=== PATIENT | female | born 1995 | race Native Hawaiian/Other Pacific Islander ===

== ENCOUNTER 2018-08-01 02:40 | Inpatient (IN) | payer OTHER ==
--- NOTE | 2018-08-01 04:01 | ED PDOC ---
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 Denies vaginal bleeding or discharge. Patient reports recently having an US for her which showed an IUP. PMD: Juancarlos Christiansen Past Medical History Reviewed: Historical Data, Nursing Documentation, Vital Signs Vital Signs: Last Vital Signs Temp 98.3 F 08/01/18 02:46 Pulse 95 H 08/01/18 02:46 Resp 18 08/01/18 02:46 BP 114/47 L 08/01/18 02:46 Pulse Ox 100 08/01/18 04:05 - Medical History PMH: No Chronic Diseases - Surgical History Surgical History: No Surg Hx - Family History Family History: States: Unknown Family Hx - Social History Current smoker - smoking cessation education provided: No Alcohol: None Drugs: Denies - Immunization History Hx Tetanus Toxoid Vaccination: No Hx Influenza Vaccination: No Hx Pneumococcal Vaccination: No - Home Medications Home Medications: Ambulatory Orders Medication Instructions Recorded Dicyclomine [Bentyl] 20 mg PO QID PRN #20 tab 02/02/18 - Allergies Allergies/Adverse Reactions: Allergies Allergy/AdvReac Type Severity Reaction Status Date / Time No Known Allergies Allergy Verified 03/16/17 21:47 Review of Systems ROS Statement: Except As Marked, All Systems Reviewed And Found Negative Gastrointestinal: Positive for: Nausea, Vomiting (x10 episodes, clear non-bloody ), Abdominal Pain (epigastric, burning feeling) Genitourinary Female: Negative for: Vaginal Discharge, Vaginal Bleeding Physical Exam - Reviewed Nursing Documentation Reviewed: Yes Vital Signs Reviewed: Yes - Physical Exam Appears: Positive for: Well, Non-toxic, No Acute Distress Head Exam: Positive for: ATRAUMATIC, NORMAL INSPECTION, NORMOCEPHALIC Skin: Positive for: Normal Color, Warm, Dry Eye Exam: Positive for: Normal appearance, EOMI, PERRL ENT: Positive for: Normal ENT Inspection Neck: Positive for: Normal, Painless ROM, Supple Cardiovascular/Chest: Positive for: Regular Rate, Rhythm Respiratory: Positive for: Normal Breath Sounds. Negative for: Accessory Muscle Use, Respiratory Distress Gastrointestinal/Abdominal: Positive for: Tenderness (to palpation of epigastric area; nontender lower abdomen) Pelvic Exam: Positive for: External Exam Normal, Speculum Exam Normal, Tender Adnexa (R sided, no fullness), Other (Leonora Goel, RN is parts and service manager) Back: Positive for: Normal Inspection Extremity: Positive for: Normal ROM. Negative for: Tenderness, Swelling Neurologic/Psych: Positive for: Alert, Oriented (x3). Negative for: Motor/ Sensory Deficits - Laboratory Results Result Diagrams: 08/01/18 04:31 08/01/18 04:31 - ECG O2 Sat by Pulse Oximetry: 100 (RA) Pulse Ox Interpretation: Normal Medical Decision Making Medical Decision Making: A/P: pt presenting with nausea and vomiting --ddx: hyperemesis gravidarum vs gastritis vs gastroenteritis --bedside sonogram positive for heart rate and motion 0326 --BMP --U-preg --U-dip --CBC with differential --Dextrose 5% IV --Pepcid 20mg IVP --Tylenol 650mg PO --Zofran 4mg IVP 0600 --Patient still in same amount of pain --Pain is now migrating towards RLQ, concerning for possible appendicitis --Pelvic exam does demonstrate tender adnexa: unclear at this time if pain is of ovarian pathology or not --Case discussed with Dr. Louis who recommends urgent surgical consult --Case discussed with surgical elastic knitter hand frame Dr. Payan who will evaluate patient 0700 --Will endorse case to Dr. Mishra pending surgical consult, OB consult, MRI, U/S , and Re-eval Scribe Attestation: Documented by Coco Garzon, acting as a scribe for Luisito Mckeon MD. Provider Scribe Attestation: All medical record entries made by the Scribe were at my direction and personally dictated by me. I have reviewed the chart and agree that the record accurately reflects my personal performance of the history, physical exam, medical decision making, and the department course for this patient. I have also personally directed, reviewed, and agree with the discharge instructions and disposition. Disposition - Clinical Impression Clinical Impression: Abdominal pain - Patient ED Disposition Is Patient to be Admitted: Transfer of Care - Disposition Disposition: Transfer of Care Disposition Time: 07:00 Condition: FAIR Forms: [employer] (Moldovan) Patient Signed Over To: Lucho Mishra Handoff Comments: pending sono, MRI, OB, and surgical consult
[2018-08-01] MEDS: Dextrose 5%/0.45% NS 1,000 ML IV SCH ×2 (04:09→09:21)
[2018-08-01 04:38] LABS: BASO % 0.2 % (0.0-2.0); HEMOGLOBIN 10.6 g/dL (12.0-16.0); LYMPH # 1.2 K/uL (1.0-4.3); LYMPH % 5.6 % (20.0-40.0); MEAN CELL VOLUME 89.5 fl (81.0-99.0); MEAN CORPUSCULAR HEMOGLOBIN 30.8 pg (27.0-31.0); MEAN CORPUSCULAR HGB CONC 34.4 g/dL (33.0-37.0); MONO % 4.4 % (0.0-10.0); NEUT # 19.6 K/uL (1.8-7.0); NEUT % 89.8 % (50.0-75.0); NRBC % 0.1 % (0.0-0.0); PLATELET COUNT 291 K/uL (130-400); RBC 3.46 Mil/uL (3.80-5.20); RED CELL DISTRIBUTION WIDTH 12.9 % (11.5-14.5); WHITE BLOOD COUNT 21.8 K/uL (4.8-10.8)
[2018-08-01 04:42] LABS: BLOOD UREA NITROGEN 5 mg/dl (7-17); CALCIUM 9.7 mg/dL (8.4-10.2); GFR NON-AFRICAN AMERICAN > 60
[2018-08-01] MEDS ORDERED: Sodium Chloride 0.9% 1,000 ML IV SCH (05:45)
[2018-08-01 05:53] LABS: ANISOCYTOSIS SLIGHT; BANDS 1 % (0-2); LYMPHOCYTE 7 % (20-50); MONOCYTE 3 % (0-10); NEUTROPHIL 89 % (42-75); PLATELET ESTIMATE NORMAL (NORMAL); POIKILOCYTOSIS SLIGHT; TOTAL CELLS COUNTED 100
[2018-08-01 06:39] LABS: INR 1.1; PROTHROMBIN TIME 12.2 Seconds (9.8-13.1)
[2018-08-01 06:41] LABS: PARTIAL THROMBOPLASTIN TIME 23.3 Seconds (25.6-37.1)
[2018-08-01 06:55] LABS: SQUAMOUS EPITHIAL 2 /hpf (0-5); URINE BILIRUBIN NEGATIVE (NEGATIVE); URINE BLOOD SMALL (NEGATIVE); URINE CLARITY CLEAR (Clear); URINE COLOR STRAW (YELLOW); URINE GLUCOSE (UA) >=500 mg/dL (Normal); URINE LEUKOCYTE ESTERASE NEG Leu/uL (Negative); URINE PROTEIN NEGATIVE (NEGATIVE); URINE UROBILINOGEN 0.2-1.0 mg/dL (0.2-1.0)
--- NOTE | 2018-08-01 07:35 | ED PDOC ---
- Laboratory Results Result Diagrams: 08/01/18 04:31 08/01/18 04:31 - ECG O2 Sat by Pulse Oximetry: 100 (RA) Pulse Ox Interpretation: Normal Medical Decision Making Medical Decision Making: Time: 0700 -- Patient endorsed to me by Dr. Mckeon, pending sono, MRI, OB and surgical consult. Scribe Attestation: Documented by Nathan Chavez acting as a scribe for Lucho Mishra MD. MRI discussed with radiologist, feels that findings suggestive of appendicitis. Discussed with surgical supply assistant as well as Dr. Ruiz. Will admit for appendicitis and start on IV Zosyn. Provider Scribe Attestation: All medical record entries made by the Scribe were at my direction and personally dictated by me. I have reviewed the chart and agree that the record accurately reflects my personal performance of the history, physical exam, medical decision making, and the department course for this patient. I have also personally directed, reviewed, and agree with the discharge instructions and disposition. Disposition - Clinical Impression Clinical Impression: Abdominal pain, Appendicitis - POA Present On Arrival: None - Disposition Disposition: Admitted as In-Patient Disposition Time: 09:14 Condition: FAIR Forms: [employer] (Nepali)
--- NOTE | 2018-08-01 08:35 | CP.PCM.CON ---
<Romel Payan - Last Filed: 08/01/18 08:32> History of Present Illness - History of Present Illness History of Present Illness: General Surgery Consult Re: possible appendicitis HPI: 22F, 9 weeks , presented to the ED for evaluation of nausea and 10x clear, non-bloody emesis, and epigastric pain beginning several hours prior to arrival. After initial treatment, pain began to migrate to the RLQ and did not improve. Denies fever, chills, headache, further emesis, SOB, chest pain, dysuria, bloody BMs, vaginal discharge. PMH: Denies PSH: Denies FH: noncontributory SH: No tobacco, EtOH, or drug use All: NKDA Meds: vitamin, folate Review of Systems - Review of Systems All systems: reviewed and no additional remarkable complaints except (as per HPI ) Past Patient History - Past Social History Alcohol: None Drugs: Denies - PSYCHIATRIC Hx Substance Use: No - SURGICAL HISTORY Hx Surgeries: No Meds Allergies/Adverse Reactions: Allergies Allergy/AdvReac Type Severity Reaction Status Date / Time No Known Allergies Allergy Verified 03/16/17 21:47 - Medications Medications: Current Medications Dextrose/Sodium Chloride (Dextrose 5%/0.45% Ns 1000 Ml) 1,000 mls @ 500 mls/hr IV .Q2H AIRAM Stop: 08/02/18 03:27 Last Admin: 08/01/18 04:09 Dose: 500 mls/hr Sodium Chloride (Sodium Chloride 0.9%) 1,000 mls @ 1,000 mls/hr IV .Q1H AIRAM Stop: 08/02/18 05:33 Last Admin: 08/01/18 06:29 Dose: 1,000 mls/hr Physical Exam - Constitutional Appears: Non-toxic, No Acute Distress - Head Exam Head Exam: ATRAUMATIC, NORMOCEPHALIC - Eye Exam Eye Exam: EOMI. absent: Scleral icterus - ENT Exam ENT Exam: Mucous Membranes Moist Additional comments: trachea midline - Respiratory Exam Respiratory Exam: NORMAL BREATHING PATTERN. absent: Respiratory Distress - Cardiovascular Exam Cardiovascular Exam: RRR, +S1, +S2 - GI/Abdominal Exam GI & Abdominal Exam: Soft, Tenderness (in RLQ at mcburneys point). absent: Distended, Firm, Guarding, Hernia, Rebound, Rigid - Rectal Exam Rectal Exam: Deferred - Extremities Exam Extremities exam: Positive for: pedal pulses present. Negative for: calf tenderness, pedal edema - Back Exam Back exam: absent: CVA tenderness (L), CVA tenderness (R) - Neurological Exam Neurological exam: Alert, Oriented x3 - Skin Skin Exam: Dry, Warm Results - Vital Signs Recent Vital Signs: Last Vital Signs Temp 98.3 F 08/01/18 02:46 Pulse 95 H 08/01/18 02:46 Resp 18 08/01/18 02:46 BP 114/47 L 08/01/18 02:46 Pulse Ox 100 08/01/18 07:35 - Labs Result Diagrams: 08/01/18 04:31 08/01/18 04:31 Labs: Laboratory Results - last 24 hr 08/01/18 08/01/18 08/01/18 04:31 04:31 06:30 WBC 21.8 H RBC 3.46 L Hgb 10.6 L Hct 31.0 L MCV 89.5 MCH 30.8 MCHC 34.4 RDW 12.9 Plt Count 291 MPV 8.0 Neut % (Auto) 89.8 H Lymph % (Auto) 5.6 L [place] % (Auto) 4.4 Eos % (Auto) 0.0 Baso % (Auto) 0.2 Neut # (Auto) 19.6 H Lymph # (Auto) 1.2 [place] # (Auto) 1.0 H Eos # (Auto) 0.0 Baso # (Auto) 0.0 Neutrophils % (Manual) 89 H Band Neutrophils % 1 Lymphocytes % (Manual) 7 L Monocytes % (Manual) 3 Platelet Estimate Normal Poikilocytosis (manual Slight Anisocytosis (manual) Slight PT INR APTT Sodium 138 Potassium 3.8 Chloride 103 Carbon Dioxide 20 L Anion Gap 19 BUN 5 L Creatinine 0.6 L Est GFR ( Amer) > 60 Est GFR (Non-Af Amer) > 60 Random Glucose 92 Calcium 9.7 Beta HCG, Quant 594432.00 Urine Color Urine Clarity Urine pH Ur Specific [place] Urine Protein Urine Glucose (UA) Urine Ketones Urine Blood Urine Nitrate Urine Bilirubin Urine Urobilinogen Ur Leukocyte Esterase Urine RBC (Auto) Urine Microscopic WBC Ur Squamous Epith Cells Blood Type Antibody Screen BBK History Checked 08/01/18 08/01/18 08/01/18 06:30 06:30 06:30 WBC RBC Hgb Hct MCV MCH MCHC RDW Plt Count MPV Neut % (Auto) Lymph % (Auto) [place] % (Auto) Eos % (Auto) Baso % (Auto) Neut # (Auto) Lymph # (Auto) [place] # (Auto) Eos # (Auto) Baso # (Auto) Neutrophils % (Manual) Band Neutrophils % Lymphocytes % (Manual) Monocytes % (Manual) Platelet Estimate Poikilocytosis (manual Anisocytosis (manual) PT 12.2 INR 1.1 APTT 23.3 L Sodium Potassium Chloride Carbon Dioxide Anion Gap BUN Creatinine Est GFR ( Amer) Est GFR (Non-Af Amer) Random Glucose Calcium Beta HCG, Quant Urine Color Straw Urine Clarity Clear Urine pH 7.0 Ur Specific [place] 1.008 Urine Protein Negative Urine Glucose (UA) >=500 Urine Ketones Trace Urine Blood Small Urine Nitrate Negative Urine Bilirubin Negative Urine Urobilinogen 0.2-1.0 Ur Leukocyte Esterase Neg Urine RBC (Auto) 1 Urine Microscopic WBC 1 Ur Squamous Epith Cells 2 Blood Type O POSITIVE Antibody Screen Negative BBK History Checked No verified bt - Imaging and Cardiology MRI - abdomen Status: Image reviewed by me, Pending (report) Assessment & Plan - Assessment and Plan (Free Text) Assessment: 22F with acute appendicitis Plan: F/U MRI read for confimation NPO IVF pain meds PRN Zofran Abx Possible OR today D/W Dr. Mert Payan PGY4 <Damon Painting - Last Filed: 08/01/18 14:12> History of Present Illness - History of Present Illness History of Present Illness: Patient was seen and examined at the bedside. Agree with resident's note above. MRI results noted. Meds - Medications Medications: Current Medications Hydromorphone HCl (Dilaudid) 0.5 mg IVP Q5M PRN PRN Reason: Pain, severe (8-10) Stop: 08/01/18 14:56 Sodium Chloride (Sodium Chloride 0.9%) 1,000 mls @ 1,000 mls/hr IV .Q1H AIRAM Stop: 08/02/18 05:33 Last Admin: 08/01/18 06:29 Dose: 1,000 mls/hr Piperacillin Sod/Tazobactam (Sod 3.375 gm/ Sodium Chloride) 100 mls @ 100 mls/ hr IVPB Q12 AIRAM PRN Reason: Protocol Stop: 08/03/18 21:01 Ondansetron HCl (Zofran Inj) 4 mg IVP Q4 PRN PRN Reason: Nausea/Vomiting Oxycodone/Acetaminophen (Percocet 5/325 Mg Tab) 1 tab PO Q4 PRN PRN Reason: Pain, moderate (4-7) Stop: 08/04/18 13:09 Physical Exam - GI/Abdominal Exam Additional comments: soft, RLQ tenderness, ND, BS+, no rebound, no guarding, gravid uterus Results - Vital Signs Recent Vital Signs: Last Vital Signs Temp 98.2 F 08/01/18 13:50 Pulse 79 08/01/18 13:50 Resp 24 08/01/18 13:50 BP 97/58 L 08/01/18 13:50 Pulse Ox 100 08/01/18 13:50 - Labs Result Diagrams: 08/01/18 04:31 08/01/18 04:31 Labs: Laboratory Results - last 24 hr 08/01/18 08/01/18 08/01/18 04:31 04:31 06:30 WBC 21.8 H RBC 3.46 L Hgb 10.6 L Hct 31.0 L MCV 89.5 MCH 30.8 MCHC 34.4 RDW 12.9 Plt Count 291 MPV 8.0 Neut % (Auto) 89.8 H Lymph % (Auto) 5.6 L [place] % (Auto) 4.4 Eos % (Auto) 0.0 Baso % (Auto) 0.2 Neut # (Auto) 19.6 H Lymph # (Auto) 1.2 [place] # (Auto) 1.0 H Eos # (Auto) 0.0 Baso # (Auto) 0.0 Neutrophils % (Manual) 89 H Band Neutrophils % 1 Lymphocytes % (Manual) 7 L Monocytes % (Manual) 3 Platelet Estimate Normal Poikilocytosis (manual Slight Anisocytosis (manual) Slight PT INR APTT Sodium 138 Potassium 3.8 Chloride 103 Carbon Dioxide 20 L Anion Gap 19 BUN 5 L Creatinine 0.6 L Est GFR ( Amer) > 60 Est GFR (Non-Af Amer) > 60 POC Glucose (mg/dL) Random Glucose 92 Calcium 9.7 Beta HCG, Quant 491110.00 Urine Color Urine Clarity Urine pH Ur Specific [place] Urine Protein Urine Glucose (UA) Urine Ketones Urine Blood Urine Nitrate Urine Bilirubin Urine Urobilinogen Ur Leukocyte Esterase Urine RBC (Auto) Urine Microscopic WBC Ur Squamous Epith Cells Blood Type Blood Type Confirm Antibody Screen BBK History Checked 08/01/18 08/01/18 08/01/18 06:30 06:30 06:30 WBC RBC Hgb Hct MCV MCH MCHC RDW Plt Count MPV Neut % (Auto) Lymph % (Auto) [place] % (Auto) Eos % (Auto) Baso % (Auto) Neut # (Auto) Lymph # (Auto) [place] # (Auto) Eos # (Auto) Baso # (Auto) Neutrophils % (Manual) Band Neutrophils % Lymphocytes % (Manual) Monocytes % (Manual) Platelet Estimate Poikilocytosis (manual Anisocytosis (manual) PT 12.2 INR 1.1 APTT 23.3 L Sodium Potassium Chloride Carbon Dioxide Anion Gap BUN Creatinine Est GFR ( Amer) Est GFR (Non-Af Amer) POC Glucose (mg/dL) Random Glucose Calcium Beta HCG, Quant Urine Color Straw Urine Clarity Clear Urine pH 7.0 Ur Specific [place] 1.008 Urine Protein Negative Urine Glucose (UA) >=500 Urine Ketones Trace Urine Blood Small Urine Nitrate Negative Urine Bilirubin Negative Urine Urobilinogen 0.2-1.0 Ur Leukocyte Esterase Neg Urine RBC (Auto) 1 Urine Microscopic WBC 1 Ur Squamous Epith Cells 2 Blood Type O POSITIVE Blood Type Confirm Antibody Screen Negative BBK History Checked No verified bt 08/01/18 08/01/18 09:15 09:35 WBC RBC Hgb Hct MCV MCH MCHC RDW Plt Count MPV Neut % (Auto) Lymph % (Auto) [place] % (Auto) Eos % (Auto) Baso % (Auto) Neut # (Auto) Lymph # (Auto) [place] # (Auto) Eos # (Auto) Baso # (Auto) Neutrophils % (Manual) Band Neutrophils % Lymphocytes % (Manual) Monocytes % (Manual) Platelet Estimate Poikilocytosis (manual Anisocytosis (manual) PT INR APTT Sodium Potassium Chloride Carbon Dioxide Anion Gap BUN Creatinine Est GFR ( Amer) Est GFR (Non-Af Amer) POC Glucose (mg/dL) 112 H Random Glucose Calcium Beta HCG, Quant Urine Color Urine Clarity Urine pH Ur Specific [place] Urine Protein Urine Glucose (UA) Urine Ketones Urine Blood Urine Nitrate Urine Bilirubin Urine Urobilinogen Ur Leukocyte Esterase Urine RBC (Auto) Urine Microscopic WBC Ur Squamous Epith Cells Blood Type Blood Type Confirm O POSITIVE Antibody Screen BBK History Checked Assessment & Plan - Assessment and Plan (Free Text) Plan: - Keep NPO - IV fluids - Antibiotics - Pain control - To OR for Laparoscopic Appendectomy
[2018-08-01] MEDS ORDERED: Piperacillin/Tazobact 3.375 GM in Sodium Chloride 0.9% 100 ML IVPB STA (09:11)
--- NOTE | 2018-08-01 09:11 | MRI ---
Date of service: 08/01/2018 PROCEDURE: MRI examination of the abdomen without contrast HISTORY: 9wks , RLQ pain COMPARISON: None available. TECHNIQUE: Multiplanar, multi sequence MR images of the pelvis were obtained. No intravenous gadolinium contrast was administered. FINDINGS: UTERUS: There is evidence of a intrauterine gestational sac and probable early pole. pole 24-25 but should be correlated with ultrasound. Additionally viability cannot be documented on this present MRI exam. There appears to be the suggestion of a possible focal fibroid or contraction within the uterus. Visualized cervix is unremarkable. Visualized bladder is unremarkable. OVARIES/ ADNEXA: Right ovary: Unremarkable. Left ovary: Unremarkable. Fallopian tubes: Not visualized. No evidence of hydrosalpinx. BOWEL: No bowel obstruction is appreciated. Fluid filled right colon and cecum are noted. Appendix is noted in the right mid abdomen. There appears to be at least top-normal size of the appendix measuring 10 millimeters. Appendix is fluid filled, and there appears to be the suggestion of some mild adjacent induration enter high-signal fluid. There is also some mild fluid noted tracking into the right pericolic gutter region. Remainder of the small bowel shows no evidence of dilatation or obstruction. Imaging findings are suspicious for appendicitis in the correct clinical setting but should be correlated with laboratory values, symptoms, and physical exam. In addition the appendix is noted a few centimeters below the level of the right kidney can not as inferior within the right pelvis . LYMPH NODES: No lymphadenopathy. BLADDER: Unremarkable. FREE FLUID: Mild high-signal free fluid is seen in the right pericolic gutter and right side of the abdomen. PELVIC BONES: Grossly unremarkable. OTHER FINDINGS: Limited visualization of the internal organs are unremarkable. No hydronephrosis is seen. No perinephric inflammatory changes are noted. No gallstones or gallbladder wall thickening are noted. No appreciable free air is seen. IMPRESSION: Mildly distended appendix with fluid. Appendix measures up to 10 millimeters and there also appears to be some possible mild periappendiceal inflammatory change. Mild fluid is noted in the right pericolic gutter. Findings are suspicious for appendicitis but once again should be correlated with clinical history, symptoms and physical exam. Single intrauterine gestation is noted. Viability should be documented with ultrasound. Results were discussed with the emergency room physician at the time the examination was reviewed.
[2018-08-01] MEDS ORDERED: Piperacillin/Tazobact 3.375 gm Inj IVPB ONE (09:22)
--- NOTE | 2018-08-01 09:40 | US ---
Date of service: 08/01/2018 PROCEDURE: OB Pelvic Ultrasound HISTORY: 9 wks preg, Abd pain 05/22/2018 last menstrual. COMPARISON: MRI examination of the abdomen same day FINDINGS: UTERUS: Gestational sac: Single intrauterine gestation. Heart rate: 164 bpm. age (Ultrasound estimated): 9 weeks and 2 days Brittany-gestational hemorrhage: None. Date of delivery (Ultrasound estimated) : 03/04/2019 Uterus measures 11 x 8 x 6 cm. Normal in size and appearance. CERVIX: Measures within normal limits cm. Long and closed. No cervical abnormality seen. RIGHT OVARY: Measures 2.6 x 2.6 x 1.8 cm. No mass lesion. Normal flow. LEFT OVARY: Measures 2.9 x 2.4 x 1.3 cm. No solid mass. Normal flow. FREE FLUID: None. OTHER FINDINGS: Technologist reveals image of possible tubular structure in the right lower quadrant which is labeled appendix. This measures 5 millimeters on the ultrasound. However on the MRI examination the appendix is located higher than the lower pelvis, and this may reflect other bowel structure. IMPRESSION: Single live intrauterine gestation with an estimated gestational age of 9 weeks and 2 days. No subchorionic hemorrhage or adnexal mass. Technologist performing the exam at the institution measures a possible tubular structure in the right lower quadrant labeled appendix, however this is probably lower than seen on the MRI exam of the same day. Please see MRI report.
[2018-08-01] MEDS ORDERED: Sodium Chloride 0.9% 1,000 ML IV ONE (11:00)
[2018-08-01] MEDS ORDERED: Propofol 10 mg/ml Inj (20 ML) ONE (11:16)
[2018-08-01] MEDS ORDERED: Succinylcholine 200 mg/10 ml Inj IV ONE (11:17)
[2018-08-01] MEDS ORDERED: Rocuronium 10 mg/ml (5 ml) ONE (11:17)
[2018-08-01] MEDS ORDERED: Neostigmine 1:1000 (1 mg/ml) Inj ONE ×2 (11:18→11:19)
[2018-08-01] MEDS ORDERED: Lidocaine 4% (Laryng-O-Jet) Kit MM ONE (11:18)
[2018-08-01] MEDS ORDERED: ePHEDrine 50 mg/ml Inj ONE (11:40)
[2018-08-01] MEDS ORDERED: Lidocaine 2% PF (10 ml) Amp ONE (11:46)
[2018-08-01] MEDS ORDERED: Bupivacaine HCl 0.5% PF (30 ml) Inj ONE (11:47)
[2018-08-01] MEDS ORDERED: Bupivacaine 0.5% Inj(30mL) IJ ONE (12:25)
--- NOTE | 2018-08-01 13:07 | PCM.SURG1 ---
Surgeon's Initial Post Op Note - Surgeon's Notes Surgeon: Dr. Painting Automobile Lights Assembler: Dr. Aguilera PGY-3 Type of Anesthesia: General Endo Anesthesia Administered By: Dr. Jain Pre-Operative Diagnosis: Acute Appendicitis Operative Findings: See operative report Post-Operative Diagnosis: Same Operation Performed: Laparoscopic Appendectomy Specimen/Specimens Removed: Appendix Estimated Blood Loss: EBL {In ML}: 5 Blood Products Given: N/A Drains Used: No Drains Date of Surgery/Procedure: 08/01/18 Time of Surgery/Procedure: 13:07
[2018-08-01] MEDS ORDERED: Oxycodone/Acetaminophen 5/325 mg Tab PO PRN (13:08)
[2018-08-01] MEDS: Piperacillin/Tazobact 3.375 GM in Sodium Chloride 0.9% 100 ML IVPB SCH (21:45)
[2018-08-02 06:22] LABS: BASO % 0.3 % (0.0-2.0); EOS % 0.2 % (0.0-4.0); HEMOGLOBIN 7.9 g/dL (12.0-16.0); LYMPH # 2.7 K/uL (1.0-4.3); LYMPH % 19.2 % (20.0-40.0); MEAN CELL VOLUME 90.7 fl (81.0-99.0); MEAN CORPUSCULAR HEMOGLOBIN 30.4 pg (27.0-31.0); MEAN CORPUSCULAR HGB CONC 33.5 g/dL (33.0-37.0); MONO # 0.7 K/uL (0.0-0.8); MONO % 4.8 % (0.0-10.0); NEUT # 10.7 K/uL (1.8-7.0); NEUT % 75.5 % (50.0-75.0); RBC 2.61 Mil/uL (3.80-5.20); WHITE BLOOD COUNT 14.2 K/uL (4.8-10.8)
--- NOTE | 2018-08-02 07:39 | CP.PCM.PN ---
<Maritza Aguilera - Last Filed: 08/02/18 07:37> Subjective - Date & Time of Evaluation Date of Evaluation: 08/02/18 Time of Evaluation: 07:37 - Subjective Subjective: Surgery: Dr. Painting Pt seen and examined. No acute overnight events. Pt states she is feeling better this AM. She admits to post-op pain around the incisions but states it's well controlled with the pain meds. Admits to tolerating a regular diet. Denies N/V, fevers/chills. Objective - Vital Signs/Intake and Output Vital Signs (last 24 hours): Temp Pulse Resp BP Pulse Ox 97.8 F 81 19 91/64 L 98 08/02/18 05:00 08/02/18 05:00 08/02/18 05:00 08/02/18 05:00 08/02/18 05:00 - Medications Medications: Current Medications Piperacillin Sod/Tazobactam (Sod 3.375 gm/ Sodium Chloride) 100 mls @ 100 mls/ hr IVPB Q12 AIRAM PRN Reason: Protocol Stop: 08/03/18 21:01 Last Admin: 08/01/18 21:45 Dose: 100 mls/hr Ondansetron HCl (Zofran Inj) 4 mg IVP Q4 PRN PRN Reason: Nausea/Vomiting Oxycodone/Acetaminophen (Percocet 5/325 Mg Tab) 1 tab PO Q4 PRN PRN Reason: Pain, moderate (4-7) Stop: 08/04/18 13:09 - Labs Labs: 08/02/18 05:40 08/01/18 04:31 PT 12.2 Seconds (9.8-13.1) 08/01/18 06:30 INR 1.1 08/01/18 06:30 APTT 23.3 Seconds (25.6-37.1) L 08/01/18 06:30 - Constitutional Appears: Well, No Acute Distress - Head Exam Head Exam: ATRAUMATIC, NORMOCEPHALIC - Eye Exam Eye Exam: Normal appearance - ENT Exam ENT Exam: Mucous Membranes Moist - Respiratory Exam Respiratory Exam: NORMAL BREATHING PATTERN - Cardiovascular Exam Cardiovascular Exam: RRR - GI/Abdominal Exam GI & Abdominal Exam: Soft, Tenderness (around incision sites ). absent: Distended, Rebound - Neurological Exam Neurological Exam: Alert, Awake, Oriented x3 - Skin Skin Exam: Dry, Warm Assessment and Plan - Assessment and Plan (Free Text) Assessment: 22F, 9 weeks , with acute appendicitis s/p lap appendectomy; POD#1 Plan: - WBC trending down - cont ABX - drop in H/H likely dilutional, as pt is hemodynamically stable - will cont to monitor - further recs per Dr. Mert Aguilera <Damon Painting - Last Filed: 08/02/18 16:52> Subjective - Date & Time of Evaluation Time of Evaluation: 16:10 - Subjective Subjective: Patient was seen and examined at the bedside. Agree with resident's note above. Objective - Vital Signs/Intake and Output Vital Signs (last 24 hours): Temp Pulse Resp BP Pulse Ox 98.8 F 75 20 93/56 L 98 08/02/18 16:24 08/02/18 16:24 08/02/18 16:24 08/02/18 16:24 08/02/18 16:24 - Medications Medications: Current Medications Piperacillin Sod/Tazobactam (Sod 3.375 gm/ Sodium Chloride) 100 mls @ 100 mls/ hr IVPB Q12 AIRAM PRN Reason: Protocol Stop: 08/03/18 21:01 Last Admin: 08/02/18 11:00 Dose: 100 mls/hr Ondansetron HCl (Zofran Inj) 4 mg IVP Q4 PRN PRN Reason: Nausea/Vomiting Oxycodone/Acetaminophen (Percocet 5/325 Mg Tab) 1 tab PO Q4 PRN PRN Reason: Pain, moderate (4-7) Stop: 08/04/18 13:09 - Labs Labs: 08/02/18 05:40 08/01/18 04:31 PT 12.2 Seconds (9.8-13.1) 08/01/18 06:30 INR 1.1 08/01/18 06:30 APTT 23.3 Seconds (25.6-37.1) L 08/01/18 06:30 Assessment and Plan - Assessment and Plan (Free Text) Plan: - repeat CBC - If Hb stable patient is clear for discharge home from the general surgery stand point - Patient will follow up with me in the office in 10 days to 2 weeks for post- op visit
[2018-08-02] MEDS: Piperacillin/Tazobact 3.375 GM in Sodium Chloride 0.9% 100 ML IVPB SCH (11:00)
--- NOTE | 2018-08-02 15:41 | CP.PCM.HP ---
History of Present Illness - History of Present Illness History of Present Illness: CC: Abdominal Pain HPI: A 22 year old , Approx 9 weeks female presents to the ED for evaluation of nausea, 10 episodes of clear, non-bloody vomit, and epigastric pain described as burning beginning a few hours prior to arrival. Denies vaginal bleeding or discharge. Patient reports recently having an US for her which showed an IUP. Present on Admission - Present on Admission Any Indicators Present on Admission: No Review of Systems - Review of Systems All systems: reviewed and no additional remarkable complaints except Review of Systems: as per HPI Past Patient History - Past Medical History & Family History Past Medical History?: No Past Family History: Reviewed and not pertinent - Past Social History Smoking Status: Never Smoked Alcohol: None Drugs: Denies - PSYCHIATRIC Hx Emotional Abuse: No Hx Physical Abuse: No - SURGICAL HISTORY Hx Surgeries: No - ANESTHESIA Hx Anesthesia: No Meds Allergies/Adverse Reactions: Allergies Allergy/AdvReac Type Severity Reaction Status Date / Time No Known Allergies Allergy Verified 03/16/17 21:47 Physical Exam - Constitutional Appears: In Acute Distress - Head Exam Head Exam: ATRAUMATIC, NORMAL INSPECTION, NORMOCEPHALIC - Eye Exam Eye Exam: EOMI, Normal appearance, PERRL Pupil Exam: NORMAL ACCOMODATION, PERRL - ENT Exam ENT Exam: Mucous Membranes Moist, Normal Exam - Neck Exam Neck exam: Positive for: Normal Inspection - Respiratory Exam Respiratory Exam: Clear to Auscultation Bilateral, NORMAL BREATHING PATTERN - Cardiovascular Exam Cardiovascular Exam: REGULAR RHYTHM - GI/Abdominal Exam GI & Abdominal Exam: Guarding, Normal Bowel Sounds, Rebound, Tenderness - Extremities Exam Extremities exam: Positive for: full ROM, normal inspection - Back Exam Back exam: NORMAL INSPECTION - Neurological Exam Neurological exam: Alert, CN II-XII Intact, Normal Gait, Oriented x3, Reflexes Normal - Psychiatric Exam Psychiatric exam: Normal Affect, Normal Mood - Skin Skin Exam: Dry, Intact, Normal Color, Warm Results - Vital Signs Recent Vital Signs: Last Vital Signs Temp 99.1 F 08/02/18 07:55 Pulse 98 H 08/02/18 07:55 Resp 18 08/02/18 07:55 BP 94/48 L 08/02/18 07:55 Pulse Ox 97 08/02/18 07:55 - Labs Result Diagrams: 08/02/18 16:30 08/01/18 04:31 Labs: Laboratory Results - last 24 hr 08/02/18 05:40 WBC 14.2 H RBC 2.61 L Hgb 7.9 L D Hct 23.7 L MCV 90.7 MCH 30.4 MCHC 33.5 RDW 13.0 Plt Count 203 MPV 8.0 Neut % (Auto) 75.5 H Lymph % (Auto) 19.2 L [place] % (Auto) 4.8 Eos % (Auto) 0.2 Baso % (Auto) 0.3 Neut # (Auto) 10.7 H Lymph # (Auto) 2.7 [place] # (Auto) 0.7 Eos # (Auto) 0.0 Baso # (Auto) 0.0 - Imaging and Cardiology US - abdomen Status: Report reviewed by me Additional comment: CARLEENP MRI - abdomen Status: Report reviewed by me Additional comment: CHRISTOPHER. Appendecitis Assessment & Plan (1) Appendicitis Assessment and Plan: Leukocytosis IVF IV Zosyn Pain PRN Zofran PRN Surgery onboard Status: Acute Priority: High
[2018-08-02 16:25] VITALS: BP 93/56; PULSE 75; RESP 20; TEMP 98.8; O2SAT 98
[2018-08-02 17:00] LABS: BASO % 0.3 % (0.0-2.0); EOS % 0.2 % (0.0-4.0); HEMOGLOBIN 8.4 g/dL (12.0-16.0); LYMPH # 2.3 K/uL (1.0-4.3); LYMPH % 17.8 % (20.0-40.0); MEAN CELL VOLUME 90.3 fl (81.0-99.0); MEAN CORPUSCULAR HEMOGLOBIN 30.4 pg (27.0-31.0); MEAN CORPUSCULAR HGB CONC 33.6 g/dL (33.0-37.0); MONO # 0.8 K/uL (0.0-0.8); MONO % 6.3 % (0.0-10.0); NEUT # 9.6 K/uL (1.8-7.0); NEUT % 75.4 % (50.0-75.0); RBC 2.75 Mil/uL (3.80-5.20); RED CELL DISTRIBUTION WIDTH 13.1 % (11.5-14.5); WHITE BLOOD COUNT 12.7 K/uL (4.8-10.8)
--- NOTE | 2018-08-02 22:05 | CP.PCM.DIS ---
Provider - Provider Date of Admission: 08/01/18 09:15 Attending physician: Fracisco Richmond MD Time Spent in preparation of Discharge (in minutes): 35 Diagnosis - Discharge Diagnosis (1) Appendicitis Status: Acute Priority: High (2) Leukocytosis Status: Acute (3) Abdominal pain Status: Acute Hospital Course - Lab Results Lab Results: Most Recent Lab Values WBC 12.7 K/uL (4.8-10.8) H 08/02/18 16:30 RBC 2.75 Mil/uL (3.80-5.20) L 08/02/18 16:30 Hgb 8.4 g/dL (12.0-16.0) L 08/02/18 16:30 Hct 24.9 % (34.0-47.0) L 08/02/18 16:30 MCV 90.3 fl (81.0-99.0) 08/02/18 16:30 MCH 30.4 pg (27.0-31.0) 08/02/18 16:30 MCHC 33.6 g/dL (33.0-37.0) 08/02/18 16:30 RDW 13.1 % (11.5-14.5) 08/02/18 16:30 Plt Count 210 K/uL (130-400) 08/02/18 16:30 MPV 8.0 fl (7.2-11.7) 08/02/18 16:30 Neut % (Auto) 75.4 % (50.0-75.0) H 08/02/18 16:30 Lymph % (Auto) 17.8 % (20.0-40.0) L 08/02/18 16:30 [place] % (Auto) 6.3 % (0.0-10.0) 08/02/18 16:30 Eos % (Auto) 0.2 % (0.0-4.0) 08/02/18 16:30 Baso % (Auto) 0.3 % (0.0-2.0) 08/02/18 16:30 Neut # (Auto) 9.6 K/uL (1.8-7.0) H 08/02/18 16:30 Lymph # (Auto) 2.3 K/uL (1.0-4.3) 08/02/18 16:30 [place] # (Auto) 0.8 K/uL (0.0-0.8) 08/02/18 16:30 Eos # (Auto) 0.0 K/uL (0.0-0.7) 08/02/18 16:30 Baso # (Auto) 0.0 K/uL (0.0-0.2) 08/02/18 16:30 Neutrophils % (Manual) 89 % (42-75) H 08/01/18 04:31 Band Neutrophils % 1 % (0-2) 08/01/18 04:31 Lymphocytes % (Manual) 7 % (20-50) L 08/01/18 04:31 Monocytes % (Manual) 3 % (0-10) 08/01/18 04:31 Platelet Estimate Normal (NORMAL) 08/01/18 04:31 Poikilocytosis (manual Slight 08/01/18 04:31 Anisocytosis (manual) Slight 08/01/18 04:31 PT 12.2 Seconds (9.8-13.1) 08/01/18 06:30 INR 1.1 08/01/18 06:30 APTT 23.3 Seconds (25.6-37.1) L 08/01/18 06:30 Sodium 138 mmol/l (132-148) 08/01/18 04:31 Potassium 3.8 MMOL/L (3.6-5.0) 08/01/18 04:31 Chloride 103 mmol/L (98-107) 08/01/18 04:31 Carbon Dioxide 20 mmol/L (22-30) L 08/01/18 04:31 Anion Gap 19 (10-20) 08/01/18 04:31 BUN 5 mg/dl (7-17) L 08/01/18 04:31 Creatinine 0.6 mg/dl (0.7-1.2) L 08/01/18 04:31 Est GFR ( Amer) > 60 08/01/18 04:31 Est GFR (Non-Af Amer) > 60 08/01/18 04:31 POC Glucose (mg/dL) 112 mg/dL (65-110) H 08/01/18 09:35 Random Glucose 92 mg/dL (65-105) 08/01/18 04:31 Calcium 9.7 mg/dL (8.4-10.2) 08/01/18 04:31 Beta HCG, Quant 076271.00 mIU/mL 08/01/18 06:30 Urine Color Straw (YELLOW) 08/01/18 06:30 Urine Clarity Clear (Clear) 08/01/18 06:30 Urine pH 7.0 (5.0-8.0) 08/01/18 06:30 Ur Specific [place] 1.008 (1.003-1.030) 08/01/18 06:30 Urine Protein Negative mg/dL (NEGATIVE) 08/01/18 06:30 Urine Glucose (UA) >=500 mg/dL (Normal) 08/01/18 06:30 Urine Ketones Trace mg/dL (NEGATIVE) 08/01/18 06:30 Urine Blood Small (NEGATIVE) 08/01/18 06:30 Urine Nitrate Negative (NEGATIVE) 08/01/18 06:30 Urine Bilirubin Negative (NEGATIVE) 08/01/18 06:30 Urine Urobilinogen 0.2-1.0 mg/dL (0.2-1.0) 08/01/18 06:30 Ur Leukocyte Esterase Neg [place]/uL (Negative) 08/01/18 06:30 Urine RBC (Auto) 1 /hpf (0-3) 08/01/18 06:30 Urine Microscopic WBC 1 /hpf (0-5) 08/01/18 06:30 Ur Squamous Epith Cells 2 /hpf (0-5) 08/01/18 06:30 Blood Type O POSITIVE 08/01/18 06:30 Blood Type Confirm O POSITIVE 08/01/18 09:15 Antibody Screen Negative 08/01/18 06:30 BBK History Checked No verified bt 08/01/18 06:30 Discharge Exam - Head Exam Head Exam: ATRAUMATIC, NORMAL INSPECTION, NORMOCEPHALIC Discharge Plan - Follow Up Plan Condition: FAIR Disposition: HOME/ ROUTINE Instructions: Acute Abdominal Pain (DC), Acute Abdominal Pain (GEN) Additional Instructions: Follow up with Dr. Hodges in 10-14 days. No lifting for 3-4 weeks May shower and pat dry incisions dry No tub baths If you develop a fever or severe pain, return to ER. Take antibiotic until finished Take Motrin 800 mg q8h as needed for pain or tylenol 650 mg q6h as needed for pain
--- NOTE | 2018-08-03 08:18 | OP ---
PROCEDURE DATE: 08/01/18 PREOPERATIVE DIAGNOSIS: Acute appendicitis. POSTOPERATIVE DIAGNOSIS: Acute appendicitis. PROCEDURE: Laparoscopic appendectomy. SURGEON: Damon Painting MD. INTERLACER: Maritza Aguilera DO. ANESTHESIA: General endotracheal intubation. ANESTHESIOLOGIST: . IV FLUIDS: Crystalloids. ESTIMATED BLOOD LOSS: 5 mL. INTRAOPERATIVE FINDINGS: Acute appendicitis. SPECIMEN: Appendix. BRIEF HISTORY: Ms. Marcos is a very pleasant 22-year-old female who came to the hospital complaining of 1 day duration of right-sided abdominal pain as well as nausea and vomiting. Of note, the patient is 9 weeks' and upon further investigation and MRI of the abdomen and pelvis, the patient was found to have acute appendicitis and elevated white blood cell count. All the risks and benefits of the procedure were explained to the patient and with the patient having a full understanding of all the risks and benefits involved, informed consent was obtained and the patient was taken to the operating room for above-stated procedure. DESCRIPTION OF PROCEDURE: The patient was brought in to the operating room and placed supine on the operating room table. Bilateral Flowtron boots were applied to the patient's lower extremities. After successful induction of anesthesia and successful endotracheal intubation by the anesthesia team, Melendez catheter was inserted into the patient's urinary bladder and subsequent to that, the patient abdomen was prepped with ChloraPrep stick and draped in a standard surgical fashion. Prior to the beginning of the procedure, time-out was called in the room and everyone in the room were in agreement. Using a Veress needle, the patient's abdomen was entered at the umbilicus and pneumoperitoneum was achieved with good opening pressures. The set pressure for the intraabdominal pressure was at 12 secondary to the patient being . Subsequent to that, a 5-mm 0-degree scope was introduced into the patient's abdomen and the abdomen was inspected. We immediately were able to visualize some inflammatory changes in the right lower quadrant of the patient's abdomen and the uterus appeared to be gravid. Then, attention was turned to the lower mid abdomen. After insufflation of the abdomen, using a 11-blade scalpel knife, a 5-mm incision was made supraumbilically in a longitudinal fashion and subsequent to that, using a 5-mm Optiview Visiport, the patient's abdomen was entered under direct visualization and subsequent to that, a 5-mm 0-degree scope was introduced into the patient's abdomen. We immediately were able to visualize inflammatory changes in the right lower quadrant of the patient's abdomen and the uterus appeared to be gravid. Then, attention was turned to the lower mid abdomen. Using a 11-blade scalpel knife, a 5-mm incision was made in a transverse fashion. Subsequent to that, another 5-mm trocar was introduced into the patient's abdomen. At this point in time, attention was turned to the left lower quadrant of the patient's abdomen. Using a 11-blade scalpel knife, approximately 1-cm incision was made in transverse fashion and subsequent to that, a 12-mm trocar was introduced into the patient's abdomen. At this point in time, using two graspers, appendix was mobilized and subsequent to that, the window was created between the appendix and the mesoappendix using [place] dissector. Once this was accomplished, the appendix was taken right at the base with 45-mm blue load and the Endo JAZMYN stapler. Once the stapler was fired, then mesoappendix was taken with 45-mm carter load and the JAZMYN stapler and once the mesoappendix was taken, there appeared to be some oozing at the staple line, which was controlled with one 10-mm clip yacht captain. At this point in time, EndoCatch bag was introduced into the patient's abdomen. Appendix was placed inside of the bag and the bag was closed. At this point in time, the staple line was inspected for hemostasis. Hemostasis was confirmed. A 12 mm trocar together with EndoCatch bag and appendix were removed from the patient's abdomen and passed off to the [facility] as a specimen. Fascial layer at the 12-mm trocar site was closed with one interrupted 0 Vicryl suture and UR-6 needle. Subsequent to that, the patient's abdomen was fully desufflated. The rest of the trocars were removed from the patient's abdomen and the skin was closed with a 4-0 Monocryl suture in a running subcuticular fashion. At the end of the procedure, incision sites were infiltrated with Marcaine anesthetic. The patient's abdomen was washed and dried and a Dermabond was applied to the site of the incisions. Melendez catheter was removed from the patient's urinary bladder. The patient was successfully extubated by the anesthesia team, transferred to the [facility], and taken to the recovery room in a stable condition. At the end of the procedure, all instrument counts, needles, and sponges were correct. Damon Painting MD
== END 2018-08-02 18:10 | disposition home or self-care (01) | DRG 885 ==
LOC: H.ER 02:40 → H.ERHOLD 09:15 → H.MEDSURG1 14:18
PROVIDERS: ADMIT Internal Medicine; ATTEND Internal Medicine
PROC: 0DTJ4ZZ Resection of Appendix, Percutaneous Endoscopic Approach (ICD-10-PCS; principal; 2018-08-01 11:45)
DX: O99.611 Diseases of the digestive system complicating pregnancy, first trimester (principal); K35.80 Unspecified acute appendicitis; Z3A.09 9 weeks gestation of pregnancy; D72.829 Elevated white blood cell count, unspecified

== ENCOUNTER 2018-08-05 10:54 | Emergency (ER) | payer OTHER ==
[2018-08-05 11:00] VITALS: RESP 18; O2SAT 99
[2018-08-05 11:01] VITALS: BMI 22.6
[2018-08-05 12:15] LABS: BASO # 0.1 K/uL (0.0-0.2); BASO % 0.6 % (0.0-2.0); EOS # 0.1 K/uL (0.0-0.7); EOS % 0.9 % (0.0-4.0); HEMOGLOBIN 9.9 g/dL (12.0-16.0); LYMPH # 2.4 K/uL (1.0-4.3); LYMPH % 27.6 % (20.0-40.0); MEAN CELL VOLUME 88.2 fl (81.0-99.0); MEAN CORPUSCULAR HEMOGLOBIN 31.5 pg (27.0-31.0); MEAN CORPUSCULAR HGB CONC 35.8 g/dL (33.0-37.0); MEAN PLATELET VOLUME 8.1 fl (7.2-11.7); MONO # 0.6 K/uL (0.0-0.8); MONO % 7.1 % (0.0-10.0); NEUT # 5.6 K/uL (1.8-7.0); NEUT % 63.8 % (50.0-75.0); NRBC % 0.1 % (0.0-0.0); RBC 3.15 Mil/uL (3.80-5.20); RED CELL DISTRIBUTION WIDTH 12.8 % (11.5-14.5); WHITE BLOOD COUNT 8.8 K/uL (4.8-10.8)
[2018-08-05 12:22] LABS: SQUAMOUS EPITHIAL 3 /hpf (0-5); URINE BACTERIA MANY (<OCC); URINE BILIRUBIN NEGATIVE (NEGATIVE); URINE BLOOD SMALL (NEGATIVE); URINE CLARITY SLIGHTY-CLOUDY (Clear); URINE COLOR YELLOW (YELLOW); URINE GLUCOSE (UA) NEG (Normal); URINE LEUKOCYTE ESTERASE TRACE Leu/uL (Negative); URINE PROTEIN NEGATIVE (NEGATIVE); URINE UROBILINOGEN 0.2-1.0 mg/dL (0.2-1.0)
[2018-08-05 12:38] LABS: BLOOD UREA NITROGEN 5 mg/dl (7-17); CALCIUM 9.4 mg/dL (8.4-10.2); GFR NON-AFRICAN AMERICAN > 60
--- NOTE | 2018-08-05 14:26 | US ---
Date of service: 08/05/2018 PROCEDURE: OB Pelvic Ultrasound HISTORY: 8wks preg, s/p appendectomy, pelvic discomfort LMP: 05/22/2018 COMPARISON: None available. FINDINGS: UTERUS: Gestational sac: Single intrauterine gestation. Heart rate: 165 bpm. Gestational sac diameter measures 5.54 cm corresponding to 11 weeks and 4 days of gestational age. CRL measures 3.93 cm corresponding to 10 weeks and 6 days of gestational age. age (Ultrasound estimated): 11 weeks and 2 days Brittany-gestational hemorrhage: None. Date of delivery (Ultrasound estimated) : 02/22/2019 Uterus measures 14.3 x 6.3 x 9.0 cm. Normal in size and appearance. CERVIX: Measures 3.5 cm. Long and closed. No cervical abnormality seen. RIGHT OVARY: Measures 2.8 x 2.1 x 2.8 cm. No mass lesion. Normal flow. LEFT OVARY: Measures 2.8 x 2.3 x 2.7 cm. No solid mass. Normal flow. FREE FLUID: None. OTHER FINDINGS: None. IMPRESSION: Single live intrauterine gestation with mean gestational age of 11 weeks and 2 days. The estimated date of delivery by ultrasound is 02/22/2019.
--- NOTE | 2018-08-05 14:52 | ED PDOC ---
HPI: Female Pain Time Seen by Provider: 08/05/18 11:25 Chief Complaint (Nursing): Female Genitourinary Past Medical History Vital Signs: Last Vital Signs Temp 97 F L 08/05/18 10:59 Pulse 76 08/05/18 10:59 Resp 18 08/05/18 10:59 BP 103/68 08/05/18 10:59 Pulse Ox 99 08/05/18 10:59 - Surgical History Surgical History: Appendectomy - Family History Family History: States: Unknown Family Hx - Immunization History Hx Tetanus Toxoid Vaccination: No Hx Influenza Vaccination: No Hx Pneumococcal Vaccination: No - Home Medications Home Medications: Ambulatory Orders Medication Instructions Recorded Dicyclomine [Bentyl] 20 mg PO QID PRN #20 tab 02/02/18 Miconazole 2% Vaginal [Monistat 7 200 ea VG HS 3 Days #1 tube 08/05/18 Vaginal Cream] - Allergies Allergies/Adverse Reactions: Allergies Allergy/AdvReac Type Severity Reaction Status Date / Time No Known Allergies Allergy Verified 03/16/17 21:47 Physical Exam - Physical Exam Pelvic Exam: Positive for: External Exam Normal, Other (trace heterogeneous discharge at vaginal os, pt refused vag speculum exam stating wishes of surgical team avoid anything in vagina) - Laboratory Results Result Diagrams: 08/05/18 11:40 08/05/18 11:40 - ECG O2 Sat by Pulse Oximetry: 99 Medical Decision Making Medical Decision Making: Accession No. : [id number] Patient Name / ID : ROLAND STUBBS / [id number] Exam Date : 08/05/2018 12:24:47 ( Approved ) Study Comment : Sex / Age : F / 22Y Creator : Lorie Eric MD Dictator : Lorie Eric MD Ssis Developer : Cherry Grower : Lorie Eric MD Approver2 : Report Date : 08/05/2018 14:24:27 My Comment : Date of service: 08/05/2018 PROCEDURE: OB Pelvic Ultrasound HISTORY: 8wks preg, s/p appendectomy, pelvic discomfort LMP: 05/22/2018 COMPARISON: None available. FINDINGS: UTERUS: Gestational sac: Single intrauterine gestation. Heart rate: 165 bpm. Gestational sac diameter measures 5.54 cm corresponding to 11 weeks and 4 days of gestational age. CRL measures 3.93 cm corresponding to 10 weeks and 6 days of gestational age. age (Ultrasound estimated): 11 weeks and 2 days Brittany-gestational hemorrhage: None. Date of delivery (Ultrasound estimated) : 02/22/2019 Uterus measures 14.3 x 6.3 x 9.0 cm. Normal in size and appearance. CERVIX: Measures 3.5 cm. Long and closed. No cervical abnormality seen. RIGHT OVARY: Measures 2.8 x 2.1 x 2.8 cm. No mass lesion. Normal flow. LEFT OVARY: Measures 2.8 x 2.3 x 2.7 cm. No solid mass. Normal flow. FREE FLUID: None. OTHER FINDINGS: None. IMPRESSION: Single live intrauterine gestation with mean gestational age of 11 weeks and 2 days. The estimated date of delivery by ultrasound is 02/22/2019. Disposition - Clinical Impression Clinical Impression: Vaginal discharge, Post-operative pain, - Disposition Referrals: [facility] [Outside] Damon Painting MD [Staff Provider] - Condition: STABLE Additional Instructions: See VENEER GLUE SPREADER/OB in next 3-4 days for followup. Return to ER for any worse or new symptoms. Continue antibiotics as prior prescribed. Prescriptions: Miconazole 2% Vaginal [Monistat 7 Vaginal Cream] 200 ea VG HS 3 Days #1 tube Instructions: Vaginal Discharge in Adults Forms: [place] (Faroese)
[2018-08-05 15:47] VITALS: BP 103/58; PULSE 67; TEMP 98.7
== END 2018-08-05 15:50 | disposition home or self-care (01) ==
LOC: H.ER 10:54
DX: N89.8 Other specified noninflammatory disorders of vagina (principal); G89.18 Other acute postprocedural pain; Z33.1 Pregnant state, incidental; Z3A.11 11 weeks gestation of pregnancy

== ENCOUNTER 2018-09-19 14:28 | Emergency (ER) | payer MEDICAID, OTHER ==
[2018-09-19 14:28] VITALS: BMI 22.6
[2018-09-19 14:36] VITALS: RESP 16
--- NOTE | 2018-09-19 16:21 | CP.PCM.CON ---
<Angel Soto - Last Filed: 09/19/18 16:17> History of Present Illness - History of Present Illness History of Present Illness: General Surgery Consult Note- Dr. Painting 22F pmhx significant for uneventful laparoscopic appendectomy on 08/01/18 currently 17 weeks presents to [facility] ED with redness and rash over old incision sites. Patient states redness and itchiness first started 2 weeks ago and slowly and progressively worsened. Denies acute abdominal pain. Patient admits to taking new medications, prenantal vitamins, multivitamins, iron, and zofran for nausea related . Patient denies vomiting, fevers, chills, chest pain, shortness of breath. Patient attempted to use hydrocortisone cream which did not help. During examination, bedside ultrasound was used and no pockets of fluid was detected. ROS: 12 pt ROS conducted, negative otherwise stated above PMH: jadyn PSH: Tammy Powers (07/2018) ALL: NKDA SocialHx: Denies tobacco, etoh, recreational drug use OBGYN: Dr. Patel in [facility] Review of Systems - Review of Systems All systems: reviewed and no additional remarkable complaints except - Constitutional Constitutional: As Per HPI Past Patient History - Past Medical History & Family History Past Medical History?: No - Past Social History Smoking Status: Never Smoked - PSYCHIATRIC Hx Emotional Abuse: No Hx Physical Abuse: No Hx Substance Use: No - SURGICAL HISTORY Hx Surgeries: No - ANESTHESIA Hx Anesthesia: No Meds Allergies/Adverse Reactions: Allergies Allergy/AdvReac Type Severity Reaction Status Date / Time No Known Allergies Allergy Verified 09/19/18 14:31 Physical Exam - Constitutional Appears: Non-toxic, No Acute Distress - Head Exam Head Exam: ATRAUMATIC - Eye Exam Eye Exam: EOMI. absent: Scleral icterus - ENT Exam ENT Exam: Mucous Membranes Moist - Respiratory Exam Respiratory Exam: NORMAL BREATHING PATTERN. absent: Accessory Muscle Use, Respiratory Distress - Cardiovascular Exam Cardiovascular Exam: +S1, +S2. absent: Bradycardia, Tachycardia - GI/Abdominal Exam GI & Abdominal Exam: Soft. absent: Distended, Firm, Guarding, Hernia, Rebound, Rigid, Tenderness Additional comments: non-tender whealed erythematous region around left flank and stephen-umbilical. No areas of fluctuance, no warmth/tenderness incisions healed well and closed. - Back Exam Back exam: absent: CVA tenderness (L), CVA tenderness (R) - Neurological Exam Neurological exam: Alert, Oriented x3 - Psychiatric Exam Psychiatric exam: Normal Affect - Skin Skin Exam: Erythema (Erythema round LLQ old well healed incision. No warmth or tenderness), Warm Results - Vital Signs Recent Vital Signs: Last Vital Signs Temp 97.5 F L 09/19/18 14:31 Pulse 82 09/19/18 14:31 Resp 16 09/19/18 14:31 BP 101/50 L 09/19/18 14:31 Pulse Ox 98 09/19/18 14:31 Assessment & Plan - Assessment and Plan (Free Text) Assessment: 22F s/p Laparoscopic appendectomy on 08/01/18, w/ no immediate complications noted, currently 17 weeks Plan: - Bedside ultrasound shows no collection or drainable pocket. - unlikely wound infection given the length of time post-operatively and lack of tenderness and no areas of fluctuance - likely allergic source in nature - recommend medicine/derm consult or follow up - no acute surgical intervention at this time - patient cleared for discharge home from a surgical standpoint - patient seen, examined and case discussed in detail with Surgical attending PGY2 <Damon Painting - Last Filed: 09/19/18 16:39> History of Present Illness - History of Present Illness History of Present Illness: Patient was seen and examined at the bedside with resident. Agree with resident's note above. Results - Vital Signs Recent Vital Signs: Last Vital Signs Temp 97.5 F L 09/19/18 14:31 Pulse 82 09/19/18 14:31 Resp 16 09/19/18 14:31 BP 101/50 L 09/19/18 14:31 Pulse Ox 98 09/19/18 16:36
--- NOTE | 2018-09-19 16:31 | ED PDOC ---
HPI: Skin/Bite Injury Time Seen by Provider: 09/19/18 14:35 Chief Complaint (Nursing): Abnormal Skin Integrity Chief Complaint (Provider): Itchiness on skin x 2 weeks History Per: Patient History/Exam Limitations: no limitations Onset/Duration Of Symptoms: Days Current Symptoms Are (Timing): Still Present Location Of Injury: Right: Abdomen, Left: Abdomen Quality Of Symptoms: Itching Severity: Moderate Additional Complaint(s): 22 yo female presents for evaluation of itchiness of 3 area on abdomen. PT states it began 2 weeks ago around incision sites. Pt had appendectomy 08/01/18. Pt denies pain. Pt denies N/V/D. Pt denies fever. No similar in the past. Pt states she comes to ER today because the itchiness keeps her up at night. Past Medical History Reviewed: Historical Data, Nursing Documentation, Vital Signs Vital Signs: Last Vital Signs Temp 97.5 F L 09/19/18 14:31 Pulse 82 09/19/18 14:31 Resp 16 09/19/18 14:31 BP 101/50 L 09/19/18 14:31 Pulse Ox 98 09/19/18 14:31 - Medical History PMH: No Chronic Diseases - Surgical History Surgical History: Appendectomy - Family History Family History: States: Unknown Family Hx - Living Arrangements Living Arrangements: With Family - Social History Current smoker - smoking cessation education provided: No - Immunization History Hx Tetanus Toxoid Vaccination: No Hx Influenza Vaccination: No Hx Pneumococcal Vaccination: No - Home Medications Home Medications: Ambulatory Orders Medication Instructions Recorded Dicyclomine [Bentyl] 20 mg PO QID PRN #20 tab 02/02/18 Miconazole 2% Vaginal [Monistat 7 200 ea VG HS 3 Days #1 tube 08/05/18 Vaginal Cream] DiphenhydrAMINE [Benadryl] 50 mg PO Q6H PRN #20 cap 09/19/18 Hydrocortisone 0.5% CREAM 30 applic EXT BID PRN #1 tube 09/19/18 [Cortizone 0.5% CREAM] - Allergies Allergies/Adverse Reactions: Allergies Allergy/AdvReac Type Severity Reaction Status Date / Time No Known Allergies Allergy Verified 09/19/18 14:31 Review of Systems ROS Statement: Except As Marked, All Systems Reviewed And Found Negative Constitutional: Negative for: Fever, Chills Gastrointestinal: Negative for: Nausea, Vomiting, Abdominal Pain, Diarrhea Genitourinary Female: Negative for: Dysuria, Frequency Skin: Positive for: Rash Physical Exam - Reviewed Nursing Documentation Reviewed: Yes Vital Signs Reviewed: Yes - Physical Exam Appears: Positive for: Well, Non-toxic, No Acute Distress Head Exam: Positive for: ATRAUMATIC, NORMAL INSPECTION, NORMOCEPHALIC Skin: Positive for: Warm, Rash ((+) blanching erythematous area around each incision site, areas non-tender, (+) blanching, with scaly appearance consistant with dermatitis ). Negative for: Normal Color Eye Exam: Positive for: Normal appearance ENT: Positive for: Normal ENT Inspection Neck: Positive for: Normal Cardiovascular/Chest: Positive for: Regular Rate, Rhythm. Negative for: Bradycardia, Tachycardia Respiratory: Positive for: Normal Breath Sounds. Negative for: Accessory Muscle Use, Respiratory Distress Gastrointestinal/Abdominal: Positive for: Normal Exam, Soft. Negative for: Tenderness, Distended, Guarding, Rebound Back: Positive for: Normal Inspection Extremity: Positive for: Normal ROM Neurologic/Psych: Positive for: Alert, Oriented - ECG O2 Sat by Pulse Oximetry: 98 Medical Decision Making Medical Decision Making: Pt seen and evaluated by Dr. Painting and surgical aides teacher. There is no surgical infection. Discussed with Dr. Summers. Discussed follow-up with acetylene torch burner. Disposition - Clinical Impression Clinical Impression: Dermatitis - Patient ED Disposition Is Patient to be Admitted: No Counseled Patient/Family Regarding: Diagnosis, Need For Followup, Rx Given - Disposition Referrals: Director Of Business Development Service [Outside] Disposition: Routine/Home Disposition Time: 16:20 Condition: STABLE Prescriptions: DiphenhydrAMINE [Benadryl] 50 mg PO Q6H PRN #20 cap PRN Reason: Itching / Pruritus Hydrocortisone 0.5% CREAM [Cortizone 0.5% CREAM] 30 applic EXT BID PRN #1 tube PRN Reason: itchiness Instructions: Eczema (Atopic Dermatitis) (DC)
[2018-09-19 16:50] VITALS: BP 111/72; PULSE 89; TEMP 98.1; O2SAT 99
== END 2018-09-19 16:50 | disposition home or self-care (01) ==
LOC: H.ER 14:28
DX: O99.712 Diseases of the skin and subcutaneous tissue complicating pregnancy, second trimester (principal); L30.9 Dermatitis, unspecified; Z3A.17 17 weeks gestation of pregnancy

== ENCOUNTER 2018-10-25 09:45 | Emergency (ER) | payer MEDICAID ==
[2018-10-25 10:09] VITALS: BMI 23.6
[2018-10-25 10:10] VITALS: TEMP 98.2
[2018-10-25] MEDS ORDERED: DiphenhydrAMINE 50 mg/ml Inj IVP STA (10:24)
[2018-10-25 11:43] LABS: BASO # 0.1 K/uL (0.0-0.2); BASO % 0.5 % (0.0-2.0); EOS # 0.2 K/uL (0.0-0.7); HEMOGLOBIN 9.7 g/dL (12.0-16.0); LYMPH # 2.6 K/uL (1.0-4.3); LYMPH % 25.8 % (20.0-40.0); MEAN CELL VOLUME 92.8 fl (81.0-99.0); MEAN CORPUSCULAR HEMOGLOBIN 31.9 pg (27.0-31.0); MEAN CORPUSCULAR HGB CONC 34.4 g/dL (33.0-37.0); MEAN PLATELET VOLUME 7.8 fl (7.2-11.7); MONO # 0.8 K/uL (0.0-0.8); MONO % 7.7 % (0.0-10.0); NEUT # 6.5 K/uL (1.8-7.0); NRBC % 0.1 % (0.0-0.0); RBC 3.04 Mil/uL (3.80-5.20); RED CELL DISTRIBUTION WIDTH 13.2 % (11.5-14.5); WHITE BLOOD COUNT 10.2 K/uL (4.8-10.8)
[2018-10-25 11:53] LABS: ALB/GLOB RATIO 1.1 (1.0-2.1); ALBUMIN 3.5 g/dL (3.5-5.0); ALT/SGPT 23 U/L (9-52); AST/SGOT 18 U/L (14-36); BLOOD UREA NITROGEN 5 mg/dl (7-17); GFR NON-AFRICAN AMERICAN > 60
[2018-10-25] MEDS ORDERED: DiphenhydrAMINE 50 mg/ml Inj ONE (12:20)
[2018-10-25 14:58] VITALS: RESP 16; O2SAT 100
--- NOTE | 2018-10-25 15:12 | ED PDOC ---
HPI: Skin/Bite Injury Time Seen by Provider: 10/25/18 10:27 Chief Complaint (Nursing): Abnormal Skin Integrity Chief Complaint (Provider): Rash History/Exam Limitations: no limitations Onset/Duration Of Symptoms: Days (three) Current Symptoms Are (Timing): Still Present Location Of Injury: Right: Hand, Left: Hand, Anterior: Hand Quality Of Symptoms: Itching (Pt presents 22 weeks with a pruritic rash on the dorsal side ofher bilateral lower arms; pt indicates that she was examined yesterday by her WAREHOUSER but it still itches. Pt denies any environmental changes that may affect lesions) Past Medical History Reviewed: Historical Data, Nursing Documentation, Vital Signs Vital Signs: Last Vital Signs Temp 98.2 F 10/25/18 10:10 Pulse 88 10/25/18 12:20 Resp 16 10/25/18 12:20 BP 102/64 10/25/18 12:20 Pulse Ox 100 10/25/18 12:20 - Surgical History Surgical History: Appendectomy - Family History Family History: States: Unknown Family Hx - Immunization History Hx Tetanus Toxoid Vaccination: No Hx Influenza Vaccination: No Hx Pneumococcal Vaccination: No - Home Medications Home Medications: Ambulatory Orders Medication Instructions Recorded Dicyclomine [Bentyl] 20 mg PO QID PRN #20 tab 02/02/18 Miconazole 2% Vaginal [Monistat 7 200 ea VG HS 3 Days #1 tube 08/05/18 Vaginal Cream] DiphenhydrAMINE [Benadryl] 50 mg PO Q6H PRN #20 cap 09/19/18 Hydrocortisone 0.5% CREAM 30 applic EXT BID PRN #1 tube 09/19/18 [Cortizone 0.5% CREAM] - Allergies Allergies/Adverse Reactions: Allergies Allergy/AdvReac Type Severity Reaction Status Date / Time No Known Allergies Allergy Verified 09/19/18 14:31 Review of Systems ROS Statement: Except As Marked, All Systems Reviewed And Found Negative Genitourinary Female: Negative for: Hematuria, Vaginal Discharge, Vaginal Bleeding, Pelvic Pain, Rash Skin: Positive for: Rash, Other (pruritis) Physical Exam - Reviewed Nursing Documentation Reviewed: Yes Vital Signs Reviewed: Yes - Physical Exam Appears: Positive for: Well, Non-toxic Head Exam: Positive for: ATRAUMATIC, NORMAL INSPECTION Skin: Positive for: Normal Color, Warm, Rash (see HPI- mild pruritic rash on dorsal side of bilateral lower arms) Eye Exam: Positive for: Normal appearance Neck: Positive for: Normal, Painless ROM, Supple. Negative for: Decreased ROM Cardiovascular/Chest: Positive for: Regular Rate, Rhythm, Chest Non Tender. Negative for: Edema, Gallop, Murmur, Bradycardia, Tachycardia Respiratory: Positive for: Normal Breath Sounds. 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, Mood/Affect - Laboratory Results Result Diagrams: 10/25/18 11:30 10/25/18 11:30 - ECG O2 Sat by Pulse Oximetry: 100 Medical Decision Making Medical Decision Making: benadryl observation pt will be discharged without rx Disposition - Clinical Impression Clinical Impression: , Rash and nonspecific skin eruption - Patient ED Disposition Is Patient to be Admitted: No Doctor Will See Patient In The: Office Counseled Patient/Family Regarding: Studies Performed, Diagnosis, Need For Followup - Disposition Disposition: Routine/Home Disposition Time: 15:15 Condition: STABLE Additional Instructions: FOLLOW UP WITH WAREHOUSER IN TWO DAYS Instructions: Medications and , Activity During , Skin Rash (DC)
[2018-10-25 15:40] VITALS: BP 104/60; PULSE 86
== END 2018-10-25 15:40 | disposition home or self-care (01) ==
LOC: H.ER 09:45
DX: R21 Rash and other nonspecific skin eruption (principal); Z33.1 Pregnant state, incidental
CPT/HCPCS: 80053; 85025; 96374; 99282; J1200